=== PATIENT | female | born 1980 | race Hispanic/Latino ===

== ENCOUNTER 2022-02-04 07:41 | Emergency (ER) | payer OTHER ==
[2022-02-04] MEDS ORDERED: Dexamethasone 4 MG TAB ONE (08:25)
== END 2022-02-04 08:30 | disposition home or self-care (01) ==
LOC: CSHERS 07:41
DX: B34.9 Viral infection, unspecified (principal); J02.9 Acute pharyngitis, unspecified; Z20.822 Contact with and (suspected) exposure to COVID-19
CPT/HCPCS: 99283; J8540; U0003; U0005

== ENCOUNTER 2022-02-11 01:14 | Emergency (ER) | payer OTHER ==
[2022-02-11] MEDS ORDERED: Ondansetron PF 4 MG/2 ML Vial ONE (02:08)
[2022-02-11] MEDS ORDERED: Ketorolac Tromethamine 30 MG/ML VIAL ONE (02:08)
[2022-02-11 02:41] LABS: Bilirubin Neg (Negative); Blood, Urine 250 (Negative); Clarity Slightly Cloudy (Clear); Glucose, Urine (Dipstick) Normal (Negative); Ketone, Urine Negative (Negative); Leukocyte Negative (Negative); Nitrite Negative (Negative); Protein, Urine (Dipstick) Negative (Neg-Trace); Specific Gravity, Urine 1.005 (1.002-1.036); Urobilinogen Normal mg/dL (Less than 2)
[2022-02-11 02:45] LABS: #Basophils 0.1 10x3/uL (0.0-0.2); #Eosinphils 0.2 10x3/uL (0.0-0.5); #Monocytes 0.8 10x3/uL (0.0-1.1); #Neutrophils 7.7 10x3/uL (1.5-8.4); %Basophils 0.5 % (0.0-2.0); %Eosinophils 1.8 % (0.0-6.0); %Lymphocytes 19.6 % (18.0-47.0); %Monocytes 7.1 % (0.0-10.0); %Neutrophils 70.4 % (40.0-75.0); ALT (SGPT) 103 U/L (8-55); AST (SGOT) 66 U/L (5-34); Albumin 4.2 g/dL (3.5-5.0); Alkaline Phosphatase 87 U/L (40-110); Anion Gap 15 mmol/L (10-20); BUN (Urea Nitrogen) 11 mg/dL (7.0-18.7); Bilirubin, Total 0.5 mg/dL (0.2-1.2); Calc. Creatinine Clearance 0 mL/min (70-130); Calcium 9.6 mg/dL (7.8-10.44); Carbon Dioxide 22 mmol/L (22-29); Chloride 104 mmol/L (98-107); Globulin 4.1 g/dL (2.4-3.5); Glucose 99 mg/dL (70-105); Hemoglobin 12.6 g/dL (12.0-15.5); Mean Corpuscular HGB CONC 33.2 g/dL (32.0-36.0); Mean Corpuscular Hemoglobin 25.6 pg (27.0-33.0); Mean Corpuscular Volume 77.1 fl (81.6-98.3); Mean Platelet Volume 9.5 fl (7.4-10.4); Platelet Count 330 10x3/uL (150-450); Potassium 3.8 mmol/L (3.5-5.1); Protein, Total 8.3 g/dL (6.0-8.3); RBC Distribution Width 13.3 % (11.5-14.5); Red Blood Cell (RBC) Count 4.93 10x6/uL (3.90-5.03); Sodium 137 mmol/L (136-145); White Blood Cell (WBC) Count 10.9 10x3/uL (3.5-10.5)
[2022-02-11 02:54] LABS: Bacteria/HPF 1+ HPF (None Seen); Squamous Epithelial 0-3 HPF (0-3)
[2022-02-11 03:00] LABS: SARS-CoV-2 NAA Rapid Test DETECTED (NotDetected)
[2022-02-11 03:12] LABS: BHCG - Serum Negative (NEGATIVE); Pregs Control Background? CLEAR/WHITE (CLR/WHITE); Pregs Control Bar Appear? YES (CONTROL BAR)
== END 2022-02-11 03:45 | disposition home or self-care (01) ==
LOC: CSHERS 01:14
DX: U07.1 COVID-19 (principal)
CPT/HCPCS: 36415; 71045; 80053; 81003; 81015; 83605; 84703; 85025; 87040; 96374; 96375; J1885; J2405

== ENCOUNTER 2022-05-05 19:11 | Emergency (ER) | payer OTHER ==
[2022-05-05] MEDS ORDERED: Ketorolac Tromethamine 30 MG/ML VIAL ONE (20:06)
[2022-05-05] MEDS ORDERED: Acetaminophen 500 MG TAB ONE (20:06)
== END 2022-05-05 21:17 | disposition home or self-care (01) ==
LOC: CSHERS 19:11
DX: J06.9 Acute upper respiratory infection, unspecified (principal); Z20.822 Contact with and (suspected) exposure to COVID-19
CPT/HCPCS: 87804; 96372; 99283; J1885; U0003; U0005

== ENCOUNTER 2022-10-15 12:23 | Emergency (ER) | payer OTHER ==
[2022-10-15] MEDS ORDERED: Acetaminophen 500 MG TAB ONE (13:39)
[2022-10-15] MEDS ORDERED: Lidocaine Viscous Sol 2% 15 ml UD Cup ONE (13:58)
[2022-10-15] MEDS ORDERED: Mag-Al Plus 1200 MG/1200 MG/120 MG/30 ML UDCUP ONE (13:58)
[2022-10-15 14:33] LABS: Bilirubin Neg (Negative); Blood, Urine 25 (Negative); Clarity Slightly Cloudy (Clear); Glucose, Urine (Dipstick) Normal (Negative); Ketone, Urine 15 mg/dL (Negative); Leukocyte Negative (Negative); Nitrite Negative (Negative); Protein, Urine (Dipstick) 15 mg/dl (Neg-Trace); Urobilinogen Normal mg/dL (Less than 2)
[2022-10-15 14:39] LABS: Pregnancy Test - Urine (BHCG) Negative (Negative); Pregu Control Background? CLEAR/WHITE (CLR/WHITE); Pregu Control Bar Appear? YES (CONTROL BAR)
[2022-10-15 14:44] LABS: Bacteria/HPF Rare-Few HPF (None Seen); RBC/HPF 0-3 HPF (0-3); Squamous Epithelial 0-3 HPF (0-3); WBC/HPF 0-3 HPF (0-3)
[2022-10-15] MEDS ORDERED: Ketorolac Tromethamine 30 MG/ML VIAL ONE (14:52)
[2022-10-15] MEDS ORDERED: Dexamethasone 10 MG/ML VIAL ONE (14:52)
[2022-10-15] MEDS ORDERED: Metoclopramide HCl 10 MG TAB ONE (14:52)
[2022-10-15 14:58] LABS: SARS-CoV-2 NAA Rapid Test Not Detected (NotDetected)
== END 2022-10-15 15:54 | disposition home or self-care (01) ==
LOC: CSHERS 12:23
DX: J02.9 Acute pharyngitis, unspecified (principal); R50.9 Fever, unspecified; Z20.822 Contact with and (suspected) exposure to COVID-19
CPT/HCPCS: 81003; 81015; 81025; 87081; 87430; 96372; 99283; J1100; J1885

== ENCOUNTER 2025-04-28 08:28 | Outpatient (CLI) | payer BC ==
[2025-04-28 09:17] LABS: Hematocrit 33.1 % (34.9-44.5); Hemoglobin 10.1 g/dL (12.0-15.5); Mean Corpuscular Hemoglobin 25.4 pg (27.0-33.0); Mean Corpuscular Volume 83.2 fL (81.6-98.3); Platelet Count 343 10x3/uL (150-450); Red Blood Cell (RBC) Count 3.98 10x6/uL (3.90-5.03); White Blood Cell (WBC) Count 7.61 10x3/uL (3.5-10.5)
[2025-04-28 09:29] LABS: BHCG - Serum Negative (NEGATIVE); Pregs Control Background? CLEAR/WHITE (CLR/WHITE); Pregs Control Bar Appear? YES (CONTROL BAR)
== END 2025-04-28 08:29 | disposition home or self-care (01) ==
LOC: CSHLAB 08:28
PROVIDERS: ATTEND Obstetrics & Gynecology
DX: Z01.812 Encounter for preprocedural laboratory examination (principal); D25.9 Leiomyoma of uterus, unspecified
CPT/HCPCS: 84703; 85027; 86850; 86900; 86901

== ENCOUNTER 2025-04-29 08:56 | Day surgery (SDC) | payer BC ==
[2025-04-28 09:15] VITALS: BMI 28.3
[2025-04-29] MEDS ORDERED: PROPOFOL 40 ML ONE (09:31)
[2025-04-29] MEDS ORDERED: Ondansetron PF 4 MG/2 ML Vial ONE (09:31)
[2025-04-29] MEDS ORDERED: Lidocaine 1% PF 5 ML VIAL ONE (09:31)
[2025-04-29] MEDS ORDERED: Rocuronium Bromide 10 MG/ML (10ML VIAL) ONE (09:31)
[2025-04-29] MEDS ORDERED: SUGAMMADEX SODIUM 200 MG/2 ML VIAL ONE (09:31)
[2025-04-29] MEDS ORDERED: Bupivacaine HCl 0.5%/Epinephrine 1:200,000/PF 30 ml Vial ONE (09:32)
[2025-04-29] MEDS ORDERED: Acetaminophen 500 MG TAB ONE (09:55)
[2025-04-29] MEDS ORDERED: Gabapentin 300 MG CAP ONE (09:55)
[2025-04-29] MEDS ORDERED: Famotidine/PF 20 mg/2ml Vial ONE (09:56)
[2025-04-29] MEDS ORDERED: CEFAZOLIN 2 GM VIAL ONE (10:10)
[2025-04-29] MEDS ORDERED: Hydrocortisone Sod Succ/PF 100 mg/2 ml Vial ONE (10:22)
[2025-04-29] MEDS ORDERED: KETAMINE 100 MG/ML (5ML VIAL) ONE (10:22)
[2025-04-29] MEDS ORDERED: PHENYLEPHRINE-NS 100 MCG/ML 10 ML SYRINGE ONE (11:24)
[2025-04-29] MEDS ORDERED: oxyCODONE 5 MG TAB ONE (14:55)
== END 2025-04-29 16:13 | disposition home or self-care (01) ==
LOC: CSHSDC 08:56
PROVIDERS: ATTEND Obstetrics & Gynecology
DX: D25.1 Intramural leiomyoma of uterus (principal); N80.03 Adenomyosis of the uterus; N87.9 Dysplasia of cervix uteri, unspecified; N84.1 Polyp of cervix uteri; M06.9 Rheumatoid arthritis, unspecified; D50.9 Iron deficiency anemia, unspecified; Z90.89 Acquired absence of other organs; Z79.899 Other long term (current) drug therapy
CPT/HCPCS: 88307; J1100; J1308; J1720; J2250; J2405; J2704; J3010; S2900